=== PATIENT | male | born 1975 | race African-American/Black ===

== ENCOUNTER 2023-08-26 01:10 | Emergency (ER) | payer OTHER ==
[2023-08-26 01:51] VITALS: BMI 28.2
[2023-08-26 06:05] VITALS: BP 109/61; PULSE 88; RESP 19; TEMP 97.5
== END 2023-08-26 08:21 ==
LOC: JER 01:10
DX: S90.934A Unspecified superficial injury of right lesser toe(s), initial encounter (principal); W26.8XXA Contact with other sharp object(s), not elsewhere classified, initial encounter
CPT/HCPCS: 99283-25

== ENCOUNTER 2023-12-13 17:52 | Observation (INO) | payer OTHER ==
[2023-12-13] MEDS ORDERED: ACETAMINOPHEN INJECTION 100 ML IVPB ONE (18:37)
[2023-12-13] MEDS: SODIUM CHLORIDE 0.9% 500 ML INFUS.BAG IV ONE (18:54)
[2023-12-13] MEDS: ACETAMINOPHEN 1000 MG/100 ML BAG IVPB ONE (18:54)
[2023-12-13] MEDS: LACTATED RINGERS SOLUTION 1000 ML INFUS.BAG IV ONE (18:55)
[2023-12-13 18:59] LABS: BASO % 0.6 % (0-2.0); EOS % 4.4 % (0-4.5); HEMATOCRIT 36.2 % (35.4-49); HEMOGLOBIN 12.2 GM/dL (11.7-16.9); LYMPH % 27.8 % (8-40); MCH 29.2 pg (25.7-33.7); MCHC 33.7 g/dl (32.0-35.9); MEAN CELL VOLUME 86.7 fl (80-96); MEAN PLT VOLUME 8.2 fl (7.5-11.1); MONO % 5.7 % (3.8-10.2); NEUT % 61.5 % (42.8-82.8); PLATELET COUNT 243 10^3/uL (134-434); RBC 4.17 M/mm3 (4.00-5.60); RDW 14.3 % (11.9-15.9); WHITE BLOOD COUNT 7.6 K/mm3 (4.0-10.0)
[2023-12-13 19:05] LABS: INR 1.11 (0.83-1.09); PROTHROMBIN TIME (PATIENT) 12.7 SEC (9.7-13.0)
[2023-12-13 19:08] LABS: ACTIVATED PTT 41.5 SECONDS (25.2-36.5)
[2023-12-13 19:19] LABS: POTASSIUM 4.3 mmol/L (3.5-5.1)
[2023-12-13 19:21] LABS: ALBUMIN 3.6 g/dl (3.4-5.0); CALCIUM 9.4 mg/dL (8.5-10.1); MAGNESIUM 1.9 mg/dL (1.8-2.4)
[2023-12-13 19:23] LABS: CHOLESTEROL 69 mg/dL (50-200)
[2023-12-13 19:25] LABS: LDL CHOLESTEROL (ONLY SJRH) 27 mg/dL (5-100)
[2023-12-13 19:26] LABS: HDL CHOLESTEROL 35 mg/dL (40-60)
[2023-12-13 19:26] LABS: BILIRUBIN,TOTAL 0.5 mg/dL (0.2-1); TOT PROT 6.7 g/dl (6.4-8.2)
[2023-12-13 21:05] LABS: URINE APPEARANCE CLEAR; URINE BILIRUBIN NEGATIVE (NEGATIVE); URINE COLOR YELLOW; URINE GLUCOSE (UA) NEGATIVE (NEGATIVE); URINE KETONE TRACE (NEGATIVE); URINE LEUK ESTERASE NEGATIVE (NEGATIVE); URINE NITRITE NEGATIVE (NEGATIVE); URINE PROTEIN TRACE (NEGATIVE)
[2023-12-13 21:06] LABS: URINE AMPHETAMINES NEGATIVE (NEGATIVE); URINE BARBITURATES NEGATIVE (NEGATIVE)
[2023-12-13 21:07] LABS: METHADONE, UR NEGATIVE (NEGATIVE); PHENCYCLIDINE,URINE NEGATIVE (NEGATIVE); URINE BENZODIAZEPINES NEGATIVE (NEGATIVE)
[2023-12-13 21:08] LABS: COCAINE, UR NEGATIVE (NEGATIVE); OPIATES, URI POSITIVE (NEGATIVE)
[2023-12-13] MEDS ORDERED: levETIRAcetam 500 MG/5 ML INJECTION VIAL IVPB ONE (21:15)
[2023-12-13] MEDS: levETIRAcetam 500 MG/5 ML INJECTION VIAL IVPB ONE (21:28)
[2023-12-13] MEDS ORDERED: KETOROLAC TROMETHAMINE 15 MG/ML VIAL ONE (22:07)
[2023-12-13] MEDS: KETOROLAC TROMETHAMINE 15 MG/ML VIAL IVPUSH ONE (22:09)
[2023-12-13] MEDS: LACTATED RINGERS SOLUTION 1,000 ML/1,000 ML INFUS.BAG IV SCH (22:56)
[2023-12-14] MEDS: INSULIN ASPART SLIDING SCALE (NOVOLOG) 1 VIAL SQ SCH (05:41)
[2023-12-14 06:34] LABS: BASO % 0.7 % (0-2.0); EOS % 7.3 % (0-4.5); HEMATOCRIT 33.9 % (35.4-49); HEMOGLOBIN 11.5 GM/dL (11.7-16.9); LYMPH % 36.9 % (8-40); MCH 29.4 pg (25.7-33.7); MCHC 33.8 g/dl (32.0-35.9); MEAN CELL VOLUME 87.2 fl (80-96); MEAN PLT VOLUME 8.8 fl (7.5-11.1); MONO % 7.1 % (3.8-10.2); PLATELET COUNT 223 10^3/uL (134-434); RBC 3.89 M/mm3 (4.00-5.60); RDW 14.1 % (11.9-15.9); WHITE BLOOD COUNT 6.6 K/mm3 (4.0-10.0)
[2023-12-14] MEDS ORDERED: ACETAMINOPHEN 325 MG TABLET (FP) PO PRN (06:50)
[2023-12-14 06:51] VITALS: RESP 18
[2023-12-14 06:53] LABS: POTASSIUM 4.2 mmol/L (3.5-5.1)
[2023-12-14 06:55] LABS: CALCIUM 8.7 mg/dL (8.5-10.1)
[2023-12-14 06:56] LABS: ALBUMIN 3.2 g/dl (3.4-5.0); MAGNESIUM 1.8 mg/dL (1.8-2.4)
[2023-12-14 06:59] LABS: CREATININE 0.9 mg/dL (0.55-1.3); PHOSPHOROUS 4.6 mg/dL (2.5-4.9)
[2023-12-14 07:00] LABS: BILIRUBIN,TOTAL 0.5 mg/dL (0.2-1); TOT PROT 6.1 g/dl (6.4-8.2)
[2023-12-14] MEDS ORDERED: GABAPENTIN 400 MG CAPSULE ONE ×3 (08:10→13:53)
[2023-12-14] MEDS: GABAPENTIN 400 MG CAPSULE PO SCH (08:22)
[2023-12-14] MEDS ORDERED: ESCITALOPRAM OXALATE 10 MG TABLET ONE (10:37)
[2023-12-14] MEDS: RIVAROXABAN 2.5 MG TABLET PO SCH (10:47)
[2023-12-14] MEDS: ESCITALOPRAM OXALATE 20 MG TABLET PO SCH (10:47)
[2023-12-14] MEDS ORDERED: LORazepam 1 MG TABLET ONE (15:21)
[2023-12-14] MEDS: LORazepam 1 MG TABLET PO ONE (15:24)
[2023-12-14] MEDS ORDERED: INSULIN ASPART SLIDING SCALE (NOVOLOG) 1 VIAL SQ ONE (18:28)
[2023-12-14] MEDS ORDERED: ROSUVASTATIN CA 5 MG TABLET ONE (23:51)
[2023-12-14] MEDS ORDERED: traZODone HCL 50 MG TABLET (FP) ONE (23:51)
[2023-12-15] MEDS: traZODone HCL 50 MG TABLET (FP) PO SCH (00:10)
[2023-12-15] MEDS: ROSUVASTATIN CA 10 MG TABLET PO SCH (00:10)
[2023-12-15] MEDS ORDERED: GABAPENTIN 400 MG CAPSULE ONE (05:55)
[2023-12-15 07:05] LABS: BASO % 0.6 % (0-2.0); HEMATOCRIT 33.9 % (35.4-49); HEMOGLOBIN 11.5 GM/dL (11.7-16.9); LYMPH % 31.4 % (8-40); MCH 29.3 pg (25.7-33.7); MCHC 33.8 g/dl (32.0-35.9); MEAN CELL VOLUME 86.8 fl (80-96); MEAN PLT VOLUME 8.8 fl (7.5-11.1); MONO % 5.1 % (3.8-10.2); NEUT % 58.9 % (42.8-82.8); PLATELET COUNT 234 10^3/uL (134-434); RBC 3.91 M/mm3 (4.00-5.60); RDW 14.1 % (11.9-15.9); WHITE BLOOD COUNT 7.6 K/mm3 (4.0-10.0)
[2023-12-15 07:23] LABS: POTASSIUM 4.2 mmol/L (3.5-5.1)
[2023-12-15 07:26] LABS: CALCIUM 9.3 mg/dL (8.5-10.1)
[2023-12-15 07:27] LABS: ALBUMIN 3.4 g/dl (3.4-5.0); BLOOD UREA NITROGEN 10.6 mg/dL (7-18); MAGNESIUM 2.1 mg/dL (1.8-2.4)
[2023-12-15 07:30] LABS: CREATININE 0.7 mg/dL (0.55-1.3)
[2023-12-15 07:31] LABS: BILIRUBIN,TOTAL 0.4 mg/dL (0.2-1); TOT PROT 6.3 g/dl (6.4-8.2)
[2023-12-15] MEDS ORDERED: CLOPIDOGREL BISULFATE 75 MG TABLET (FP) ONE (10:42)
[2023-12-15] MEDS ORDERED: LISINOPRIL 20 MG TABLET ONE (10:42)
[2023-12-15] MEDS: LISINOPRIL 20 MG TABLET PO SCH (10:46)
[2023-12-15] MEDS: CLOPIDOGREL BISULFATE 75 MG TABLET (FP) PO SCH (10:46)
[2023-12-15 15:06] VITALS: BMI 22.9
[2023-12-15] MEDS: traMADol HCL 50 MG TABLET PO PRN (17:49)
[2023-12-15] MEDS: ACETAMINOPHEN 325 MG TABLET (FP) PO PRN (23:22)
[2023-12-15] MEDS: INSULIN (LEVEMIR) 100 UNITS/ML UNITS SQ SCH (23:24)
[2023-12-16 06:45] VITALS: BP 147/97; PULSE 82; TEMP 98.1
[2023-12-16 07:52] LABS: BASO % 0.6 % (0-2.0); EOS % 3.5 % (0-4.5); HEMATOCRIT 35.3 % (35.4-49); HEMOGLOBIN 11.8 GM/dL (11.7-16.9); LYMPH % 35.4 % (8-40); MCH 28.9 pg (25.7-33.7); MCHC 33.3 g/dl (32.0-35.9); MEAN CELL VOLUME 86.9 fl (80-96); MEAN PLT VOLUME 8.7 fl (7.5-11.1); MONO % 6.9 % (3.8-10.2); NEUT % 53.6 % (42.8-82.8); PLATELET COUNT 223 10^3/uL (134-434); RBC 4.07 M/mm3 (4.00-5.60); RDW 13.7 % (11.9-15.9); WHITE BLOOD COUNT 6.6 K/mm3 (4.0-10.0)
[2023-12-16 08:06] LABS: CALCIUM 9.2 mg/dL (8.5-10.1)
[2023-12-16 08:07] LABS: ALBUMIN 3.5 g/dl (3.4-5.0); BLOOD UREA NITROGEN 10.6 mg/dL (7-18); MAGNESIUM 1.9 mg/dL (1.8-2.4)
[2023-12-16 08:15] LABS: BILIRUBIN,TOTAL 0.7 mg/dL (0.2-1); CREATININE 0.6 mg/dL (0.55-1.3)
[2023-12-16 08:16] LABS: TOT PROT 6.4 g/dl (6.4-8.2)
== END 2023-12-16 16:06 ==
LOC: JER 17:52 → UNDOADMOB 21:30 → JERBED 21:30 → OBSVTOIN 23:22 → INTOOBSV 23:22 → JERBED 12-14 11:34 → J4W 12-15 11:53
PROVIDERS: ADMIT Internal Medicine; ATTEND Internal Medicine
PROC: 3E033NZ Introduction of Analgesics, Hypnotics, Sedatives into Peripheral Vein, Percutaneous Approach (ICD-10-PCS; principal; 2023-12-14)
PROC: 3E013VG Introduction of Insulin into Subcutaneous Tissue, Percutaneous Approach (ICD-10-PCS; 2023-12-14)
PROC: 3E0333Z Introduction of Anti-inflammatory into Peripheral Vein, Percutaneous Approach (ICD-10-PCS; 2023-12-14)
PROC: 3E033GC Introduction of Other Therapeutic Substance into Peripheral Vein, Percutaneous Approach (ICD-10-PCS; 2023-12-14)
PROC: 3E0337Z Introduction of Electrolytic and Water Balance Substance into Peripheral Vein, Percutaneous Approach (ICD-10-PCS; 2023-12-14)
DX: E11.9 Type 2 diabetes mellitus without complications (principal); G62.9 Polyneuropathy, unspecified; I73.9 Peripheral vascular disease, unspecified; I10 Essential (primary) hypertension; F12.90 Cannabis use, unspecified, uncomplicated; W18.39XA Other fall on same level, initial encounter; Y93.89 Activity, other specified; Y92.098 Other place in other non-institutional residence as the place of occurrence of the external cause; F11.90 Opioid use, unspecified, uncomplicated; I74.8 Embolism and thrombosis of other arteries; G89.4 Chronic pain syndrome; N52.9 Male erectile dysfunction, unspecified; Z89.421 Acquired absence of other right toe(s); M86.9 Osteomyelitis, unspecified
CPT/HCPCS: 0241U-QW; 36415; 70486-TC; 70496-TC; 70498-TC; 70551-TC; 71045-TC-FY; 72125-TC; 80053; 80061; 80307; 81003; 82550; 82962; 83036; 83605; 83735; 84100; 84439; 84443; 84484; 85025; 85610; 85730; 86850; 86900; 86901; 87086; 93005; 93010; 93306-TC; 95816; 96372; 96374; 96375; 97116-GP; 97161-GP; 99285-25; G0378; J0131